=== PATIENT | female | born 1965 | race Caucasian/White ===

== ENCOUNTER 2017-07-15 13:50 | Inpatient (IN) | payer MEDICAID ==
[~2017-07-15] VITALS: Ht 152.4 cm; Wt 100.2 kg
[~2017-07-15 13:50] MED LIST: MOTRIN
[2017-07-15] MEDS ORDERED: LISI10TA5 PO (14:15)
[2017-07-15] MEDS ORDERED: ASPI-1159 PO (14:15)
[2017-07-15] MEDS ORDERED: ESCI10TA54 PO (14:15)
[2017-07-15] MEDS ORDERED: NITROGLYCERIN OINT 1GM/INCH UDPKT TD ONE (16:00)
[2017-07-15] MEDS ORDERED: ASPIRIN 81MG TABLET PO ONE (16:00)
[2017-07-15 16:31] LABS: BASOPHILS % 1.1 % (0.0-2.0); EOSINOPHILS % 4.1 % (0.0-5.0); HEMATOCRIT. 40.1 % (36.0-48.0); HEMOGLOBIN. 13.4 g/dL (12.0-16.0); LYMPHOCYTES % 36.1 % (20.0-50.0); MEAN CORPUSCULAR HEMOGLOBIN 28.2 pg (28.0-32.0); MEAN CORPUSCULAR VOLUME 84.3 fL (81.0-99.0); MONOCYTES % 4.6 % (2.0-8.0); NEUTROPHILS % 54.1 % (40.0-76.0); PLATELET 183 x1000/uL (130-400); RED BLOOD CELL COUNT 4.76 mill/uL (4.2-5.4); RED CELL DISTRIBUTION WIDTH 15.1 % (11.6-14.6)
[2017-07-15 16:37] LABS: D-DIMER < 0.19 mg/L FEU (<0.50); INR 1.1; PROTHROMBIN TIME 11.5 sec (9.4-11.6)
[2017-07-15 16:40] LABS: CARBON DIOXIDE 26 mEq/L (21-32); CHLORIDE 107 mEq/L (98-107)
[2017-07-15 16:44] LABS: TROPONIN I < 0.02 ng/mL (0.00-0.04)
[2017-07-15 16:45] LABS: HCG SCREEN NEGATIVE
[2017-07-15] MEDS ORDERED: ASPIRIN 325MG TABLET PO ONE (18:00)
[2017-07-15 21:58] VITALS: BP 117/65
[2017-07-15 22:00] VITALS: BP 117/65
[2017-07-15] MEDS ORDERED: ASPI-1158 PO (22:24)
[2017-07-15] MEDS ORDERED: ESCI20TA36 PO (22:24)
[2017-07-15] MEDS ORDERED: TC025U80 TOP (22:24)
[2017-07-15] MEDS ORDERED: ATOR40TA70 PO (22:24)
[2017-07-15] MEDS ORDERED: OMEP20CA10 PO (22:24)
[2017-07-15] MEDS ORDERED: LISI1TAB9 PO (22:24)
[2017-07-15] MEDS ORDERED: PNEUMOCOCCAL 23-VAL P-SAC VAC 0.5 ML IM ONE (22:45)
[2017-07-15] MEDS ORDERED: ACETAMINOPHEN 325MG TABLET PO PRN (23:45)
[2017-07-15] MEDS ORDERED: TEMAZEPAM 15MG CAPSULE PO PRN (23:45)
[2017-07-16] VITALS: BP 111/42
[2017-07-16 04:00] VITALS: BP 96/40
[2017-07-16 07:07] LABS: CREATINE KINASE 59 IU/L (26-192); CREATINE KINASE MB FRACTION 0.9 ng/mL (0.5-3.6); TROPONIN I < 0.02 ng/mL (0.00-0.04)
[2017-07-16 07:33] VITALS: BP 127/70
[2017-07-16] MEDS ORDERED: REGADENOSON 0.4 MG/5 ML IV ONE (10:30)
[2017-07-16] MEDS: ASPIRIN 81MG EC TABLET PO SCH (10:53)
[2017-07-16] MEDS: ENOXAPARIN 40MG/0.4ML SYR SUBCUT SCH ×2 (10:54→22:15)
[2017-07-16 12:14] VITALS: BP 110/58
[2017-07-16 16:16] VITALS: BP 137/86
[2017-07-16 20:00] VITALS: BP 138/70
[2017-07-16 20:43] LABS: CREATINE KINASE 70 IU/L (26-192); CREATINE KINASE MB FRACTION 0.9 ng/mL (0.5-3.6); TROPONIN I < 0.02 ng/mL (0.00-0.04)
[2017-07-16] MEDS ORDERED: LORAZEPAM 2MG/ML CPJ IV PRN ×2 (20:45→22:15)
[2017-07-16] MEDS ORDERED: ATORVASTATIN CALCIUM 20MG TABLET PO SCH (21:00)
[2017-07-16] MEDS: HYDROCODONE/ACETAMINOPHEN 5/325MG TABLET PO PRN (22:14)
[2017-07-17] VITALS: BP 136/92
[2017-07-17 04:00] VITALS: BP 107/63
[2017-07-17] MEDS: HYDROCODONE/ACETAMINOPHEN 5/325MG TABLET PO PRN ×2 (05:29→13:12)
[2017-07-17 08:00] VITALS: BP 98/78
[2017-07-17] MEDS: ENOXAPARIN 40MG/0.4ML SYR SUBCUT SCH (09:18)
[2017-07-17] MEDS: ASPIRIN 81MG EC TABLET PO SCH (09:18)
[2017-07-17] MEDS ORDERED: REGADENOSON 0.4 MG/5 ML IV ONE (10:48)
[2017-07-17 13:12] VITALS: BP_DIAS 78
[2017-07-17 13:18] VITALS: BP_SYST 100
== END 2017-07-17 14:15 | disposition home or self-care (01) | DRG 203 ==
LOC: ER 15:13 → 5WST 17:11 → EDBEDREQTM 17:13 → EDBEDREQ 17:13 → ENRESERV 20:42
PROVIDERS: ADMIT Internal Medicine; ATTEND Internal Medicine
DX: M94.0 Chondrocostal junction syndrome [Tietze] (principal); E44.1 Mild protein-calorie malnutrition; I10 Essential (primary) hypertension; E83.51 Hypocalcemia; B19.20 Unspecified viral hepatitis C without hepatic coma; E11.9 Type 2 diabetes mellitus without complications; Z88.5 Allergy status to narcotic agent; Z88.0 Allergy status to penicillin; Z90.49 Acquired absence of other specified parts of digestive tract; Z87.891 Personal history of nicotine dependence; Z86.73 Personal history of transient ischemic attack (TIA), and cerebral infarction without residual deficits; Z79.899 Other long term (current) drug therapy; Z79.82 Long term (current) use of aspirin
CPT/HCPCS: 36415; 71010; 78452; 80053; 80061; 82550; 82553; 83880; 84443; 84484; 84703; 85025; 85379; 85610; 90732; 93005; 93017; 93306; 93970; 99285; A9500; J1650; J2060; J2785